=== PATIENT | male | born 2000 | race Caucasian/White ===

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

== ENCOUNTER 2023-12-16 11:59 | Emergency (ER) | payer BC, OTHER ==
[2023-12-16] MEDS: Diphtheria,Pertussis(Acell),Tetanus Vaccine 0.5 ML Syringe IM ONE (12:27)
[2023-12-16] MEDS: Acetaminophen 500 MG Tab PO ONE (12:36)
[2023-12-16] MEDS: Ibuprofen 200 MG Tab PO ONE (12:36)
== END 2023-12-16 12:42 | disposition home or self-care (01) ==
LOC: VM.ED 11:59
DX: S61.431A Puncture wound without foreign body of right hand, initial encounter (principal); Z91.018 Allergy to other foods; X58.XXXA Exposure to other specified factors, initial encounter
CPT/HCPCS: 73130-RT; 90471; 90715; 99283; 99283-25; A9270-GY

== ENCOUNTER 2024-01-12 18:10 | Emergency (ER) | payer BC ==
[2024-01-12] MEDS: Lidocaine 1% 30 ML SDV INJECT ONE (18:40)
[2024-01-12] MEDS: Ketorolac 30 MG/ML SDV IM ONE (18:54)
== END 2024-01-12 19:25 | disposition home or self-care (01) ==
LOC: VM.ED 18:10
DX: S61.214A Laceration without foreign body of right ring finger without damage to nail, initial encounter (principal); F17.210 Nicotine dependence, cigarettes, uncomplicated; Z88.8 Allergy status to other drugs, medicaments and biological substances; W23.1XXA Caught, crushed, jammed, or pinched between stationary objects, initial encounter
CPT/HCPCS: 73140-F8; 96372; 99283; J1885